=== PATIENT | female | born 1940 | race Caucasian/White ===

== ENCOUNTER 2018-08-15 07:42 | Outpatient (CLI) | payer MEDICARE ==
[~2018-08-15] VITALS: Ht 160 cm; Wt 91.8 kg
--- NOTE | ~2018-08-15 | HEMODYNAMI ---
PATIENT:AMINATA VILLAFANA MEDICAL RECORD: [id number] : 42 LOCATION:[facility] ADMISSION DATE: 08/15/18 Generatedon:08/15/201815:37 Patient name: AMINATA VILLAFANA Patient #: [id number] SSN: : 1940 Date of study: 08/15/2018 Page: Of Hemodynamic Procedure Report Patient Data Patient Demographics Procedure consent was obtained First Name: AMINTAA Gender: Female Last Name: LEDY : 1940 [facility] Initial: Melvina Age: 77 year(s) Patient #: [id number] Race: Unknown Additional ID: [id number] Contact details Address: [address] [place] [address] State: [place] City: [place] Zip code: [address] Admission Admission Data Admission Date: 08/15/2018 Admission Time: 7:42 Weight (lbs.): 202.83 Weight (kg.): 92 Lab Results Lab Result Date: 08/15/2018 Lab Result Time: 0:00 Biochemistry Name Units Result Min Max BUN mg/dl 27 --(----)-* 7 18 Creatinine mg/dl 1.4 --(----)*- 0.6 1.3 CBC Name Units Result Min Max Hemoglobin g/dl 13.5 --(*---)-- 13.5 17.5 Platelets 10^3/l 183 --(*---)-- 130 400 Procedure Procedure Types Cath Procedure Diagnostic Procedure LHC LH w/Coronaries PCI Procedure Coronary Stent Coronary Stent Initial x2 Procedure Description Procedure Date Procedure Date: 08/15/2018 Procedure Start Time: 15:10 Procedure End Time: 15:35 Procedure Staff Name Function Yuval Hanna MD Performing Physician Barbara Dias RT Scrub Xin Llanes RN Nurse Alex Glover RT Monitor Castillo Pedro RN Geothermal Powerplant Mechanic Procedure Data Cath Procedure Fluoroscopy Diagnostic fluoroscopy Total fluoroscopy Time: 7.7 time: 7.7 min min Diagnostic fluoroscopy Total fluoroscopy dose: 443 dose: 443 mGy mGy Contrast Material Contrast Material Type Amount (ml) Isovue 300 102 Entry Location Entry Primary Successful Side Size Upsize Upsize Entry Closure Succes sful Closure Location (Fr) 1 (Fr) 2 (Fr) Remarks Device Remarks Femoral Right 5 Fr 6 Fr Exoseal artery Short Estimated blood loss: 10 ml Diagnostic catheters Device Type Used For End Catheter Placement MULTIPACK Pigtail 5 Fr Procedure catheter MULTIPACK JL 4.0 5Fr Procedure catheter MULTIPACK 3DRC 5Fr Procedure catheter Procedure Complications No complications Procedure Medications Medication Administration Route Dosage 0.9% NaCl I.V. 100 ml/hr Oxygen etCO2 Nasal cannula 2 l/min Lidocaine 2% added to field 20 Heparin Flush Bag added to field 2 bags (1000units/500ml NS) Versed I.V. 2 mg Fentanyl I.V. 50 mcg Heparin Bolus I.V. 4000 units Versed I.V. 2 mg Fentanyl I.V. 50 mcg Versed I.V. 1 mg Hemodynamics Rest HGB: 13.5 (g/dl) Heart Rate: 71 (bpm) Pressure Samples Time Site Value (mmHg) Purpose Heart Use Rate(bpm) 15:20 AO 108/54(76) Snapshot 80 15:27 AO 118/56(82) Snapshot 77 Snapshots Pre Cath Intra NCS Post Cath Vital Signs Time Heart Resp SPO2 etCO2 NIBP (mmHg) Rhythm Pain Sedation Rate (ipm) (%) (mmHg) Status Level (bpm) 15:00:46 69 12 100 25.6 150/74(93) NSR 0 (11) 10(A) , No pain 15:05:27 65 11 100 12.8 148/82(117) NSR 0 (11) 10(A) , No pain 15:09:55 78 18 99 19 124/69(100) NSR 0 (11) 10(A) , No pain 15:14:28 76 15 97 18 111/64(103) NSR 0 (11) 10(A) , No pain 15:18:54 74 18 98 12.8 110/64(83) NSR 0 (11) 9(A) , No pain 15:23:18 80 10 98 18.8 104/68(87) NSR 0 (11) 10(A) , No pain 15:27:42 77 16 97 17.3 117/59(92) NSR 0 (11) 9(A) , No pain 15:32:11 76 15 98 19.6 123/67(105) NSR 0 (11) 10(A) , No pain Medications Time Medication Route Dose Verified Delivered Reason Notes Effectiveness by by 14:59:08 0.9% NaCl I.V. 100 Yuval Xin used for ml/hr Cyndi Llanes dietetic technician registered 14:59:15 Oxygen etCO2 2 Yuval Xin used for Nasal l/min Cyndi Llanes procedure cannula RN 14:59:21 Lidocaine 2% added 20ml Yuval Yuval for local to vial Cyndi Hanna MD anesthetic field 14:59:25 Heparin Flush added 2 Yuval Yuval used for Bag to bags Cyndi Hanna MD procedure (1000units/500ml field NS) 15:07:10 Versed I.V. 2 mg Yuval Xin for sedation Cyndi Llanes RN 15:07:16 Fentanyl I.V. 50 Yuval Xin for sedation mcg Cyndi Llanes RN 15:16:22 Heparin Bolus I.V. 4000 Yuval Xin for verif ied units Cyndi Llanes anticoagulation with Dr. SHANICE Hanna 15:16:44 Versed I.V. 2 mg Yuval Xin for sedation Cyndi Llanes RN 15:16:53 Fentanyl I.V. 50 Yuval Xin for sedation mcg Cyndi Llanes RN 15:26:41 Versed I.V. 1 mg Yuval Xin for sedation Cyndi Llanes RN Procedure Log Time Note 14:30:22 Castillo Pedro RN sent for patient. Start room use. 14:43:23 Time tracking: Regular hours (M-F 7:00 - 5:00) 14:43:27 Plan of Care:Hemodynamics will remain stable., Cardiac rhythm will remain stable., Comfort level will be maintained., Respiratory function will remain adequate., Patient/ family verbilizes understanding of procedure., Procedure tolerated without complication., Recovers from procedure without complications.. 14:45:26 Patient Weight : 202.83 lbs 14:45:48 Lab Result : Hemoglobin 13.5 g/dl 14:45:48 Lab Result : Creatinine 1.4 mg/dl 14:45:48 Lab Result : BUN 27 mg/dl 14:45:48 Lab Result : Platelets 183 10^3/l 14:49:19 Patient received from ED to CCL 3 Alert and oriented. Tansferred to table in Supine position. 14:49:20 Warm blankets applied, and afshin hugger turned on for patient comfort. 14:49:21 Correct patient and procedure confirmed by team. 14:49:22 Signed procedure consent form obtained from patient. 14:49:23 ECG and BP/O2 sat monitors applied to patient. 14:49:24 Full Disclosure recording started 14:58:58 Vital chart was started 14:59:08 0.9% NaCl 100 ml/hr I.V. was administered by Xin Llanes RN; used for procedure; 14:59:15 Oxygen 2 l/min etCO2 Nasal cannula was administered by Xin Llanes RN; used for procedure; 14:59:21 Lidocaine 2% 20ml vial added to field was administered by Yuval Hanna MD; for local anesthetic; 14:59:25 Heparin Flush Bag (1000units/500ml NS) 2 bags added to field was administered by Yuval Hanna MD; used for procedure; 15:04:31 Baseline sample Acquired. 15:04:35 Rhythm: sinus rhythm 15:04:44 H&P Date Dictated: 08/15/2018 Emergent; H&P N/A, Within 30 days and on chart.. 15:04:45 Pre-procedure instructions explained to patient. 15:04:45 Pre-op teaching completed and patient verbalized understanding. 15:04:49 Family in patients room. 15:04:51 Patient NPO since Midnight. 15:05:14 Is the patient allergic to Iodine/contrast media? No. 15:05:22 Is patient on blood thinner?Yes 15:05:24 ACC The patient was administered the following blood thiners within the last 24 hours: ACCPlavix 15:05:26 Patient diabetic? Yes. 15:05:33 If diabetic: On Metformin? No 15:05:35 Previous problem with sedation/anesthesia? No ? 15:05:36 Snore? Yes 15:05:37 Sleep apnea? No 15:05:38 Deviated septum? No 15:05:39 Opens mouth fully? Yes 15:05:40 Sticks out tongue? Yes 15:05:42 Airway obstruction? No ? 15:05:43 Dentures? No ? 15:05:49 Pre procedure: right dorsailis pedis pulse 1+ Palpable, but thready & weak; easily obliterated 15:05:51 Modified Jimmy's test Ulnar < 7 seconds 15:06:04 FAILED ALLENS 15:06:07 Patient pain scale 0/10 ?. 15:06:11 IV patent on arrival in left forearm with 0.9% NaCl at O. 15:06:13 Lab results completed and on chart. 15:06:17 Right groin area was prepped with chlora-prep and draped in sterile fashion 15:06:18 Alarms reviewed by R. N. 15:06:19 Sharps counted by scrub and verified by R.N. 15:06:23 Use device set Femoral Dx 15:06:28 Tegaderm 4 x 4 (1626W) opened to sterile field. 15:06:29 ACIST Manifold (00580) opened to sterile field. 15:06:30 ACIST Hand Control (31558) opened to sterile field. 15:06:31 ACIST Syringe (18229) opened to sterile field. 15:06:31 Bag Decanter (2002S) opened to sterile field. 15:06:31 Medline Cath Pack ([id number]) opened to sterile field. 15:06:32 DIAGNOSTIC WIRE .035 260cm J wire (766267) opened to sterile field. 15:06:33 DIAGNOSTIC Multipack 5Fr catheter set (AO0160) opened to sterile field. 15:06:34 SHEATH 5FR Ava (JQL367) opened to sterile field. 15:06:45 --------ALL STOP TIME OUT------ 15:06:45 Final Timeout: patient, procedure, and site verified with staff and physician. All members of the team are in agreement. 15:06:48 Right groin site verified by team. 15:06:52 Fire Safety Assessment: A--An alcohol-based skin anteseptic being used preoperatively., C--Open oxygen or nitrous oxide is being used., D--An ESU, laser, or fiber-optic light is being used. 15:06:55 Physical assessment completed. ASA score P 2 - A patient with mild systemic disease as per Yuval Hanna MD. 15:06:58 Sedation plan: IV Moderate Sedation Medication:Versed, Fentanyl 15:07:10 Versed 2 mg I.V. was administered by Xin Llanes RN; for sedation; 15:07:16 Fentanyl 50 mcg I.V. was administered by Xin Llanes RN; for sedation; 15:10:25 Procedure started. 15:10:28 Local anesthetic to right femoral artery with Lidocaine 2% by Yuval Hanna MD.INITIAL ACCESS ONLY 15:10:38 Zero performed for pressure channel P1 15:11:39 A 5 Fr sheath was inserted into the Right Femoral artery 15:11:45 A MULTIPACK Pigtail 5 Fr catheter was advanced over the wire and used for Procedure. 15:12:05 LV angiography performed. 15:12:06 LV gram done using BARRIENTOS 15:12:10 EF : 60 % 15:12:17 Injector settings: Ml/sec: 10, Volume: 20, 15:12:29 Catheter removed. 15:12:34 A MULTIPACK JL 4.0 5Fr catheter was advanced over the wire and used for Procedure. 15:13:12 LCA angiography performed. 15:13:15 Catheter removed. 15:13:29 A MULTIPACK 3DRC 5Fr catheter was advanced over the wire and used for Procedure. 15:14:14 RCA angiography performed. 15:14:15 Catheter removed. 15:14:21 Use device set [facility] PCI 15:14:33 SHEATH 6FR Ava (MYC963) opened to sterile field. 15:14:40 INFLATOR Merit BasixCompak (MY6988) opened to sterile field. 15:16:22 Heparin Bolus 4000 units I.V. was administered by Xin Llanes RN; for anticoagulation; verified with Dr. Hanna 15:16:25 CHOICE PT Extra Support J 300cm guide wire ([id number]) opened to sterile field. 15:16:32 GUIDE 6FR XB 4.0 catheter ([id number]) opened to sterile field. 15:16:44 Versed 2 mg I.V. was administered by Xin Llanes RN; for sedation; 15:16:51 Sheath upsized to a 6 Fr Short. 15:16:53 Fentanyl 50 mcg I.V. was administered by Xin Llanes RN; for sedation; 15:16:56 6 Fr XB 4 guide catheter was inserted over the wire 15:17:52 CPTXS wire advanced. 15:17:56 Wire advanced across lesion. 15:19:10 The EMERGE OTW 1.5 x 20 balloon ([id number]) was advanced and then removed because in body, not inflated 15:19:51 Place stent Inflation Number: 1 A PATRICIA RX 3.5 x 12 stent ([id number]) was prepped and advanced across the Prox CX. The stent was deployed at 13 UJHI for 0:10 (min:sec). 15:20:01 Pt preloaded with Plavix at 1143 in ER. No Integrilin needed for intervention per Dr. Hanna 15:21:15 Stent catheter was removed intact over wire. 15:21:38 Emerge Balloon catheter readvanced. 15:22:16 Wire redirected to LAD. 15:23:07 Inflate balloon Inflation number: 1 A EMERGE OTW 1.5 x 20 balloon ([id number]) was prepped and advanced across the Mid LAD, then inflated to 11 JUHI for 0:10 (min:sec). 15:25:01 Balloon removed over the wire. 15:25:40 The PATRICIA OTW 2.5 x 22 stent ([id number]) was advanced then removed because of failure to cross lesion 15:26:40 Inflate balloon Inflation number: 2 A EUPHORA 2.5 x 20 Balloon ([id number]) was prepped and advanced across the Mid LAD, then inflated to 13 JUHI for 0:10 (min:sec). 15:26:41 Versed 1 mg I.V. was administered by Xin Llanes RN; for sedation; 15:28:18 Place stent Inflation Number: 3 A PATRICIA OTW 2.5 x 22 stent ([id number]) was prepped and advanced across the Mid LAD. The stent was deployed at 13 JUHI for 0:10 (min:sec). 15:28:40 Stent catheter was removed intact over wire. 15:30:08 Place stent Inflation Number: 4 A PATRICIA RX 3.0 x 18 stent ([id number]) was prepped and advanced across the Mid LAD. The stent was deployed at 13 JUHI for 0:10 (min:sec). 15:31:01 Stent catheter was removed intact over wire. 15:31:02 Wire removed. 15:31:02 Guide catheter removed. 15:31:05 EXOSEAL 6Fr (EX600) opened to sterile field. 15:31:18 Sheath removed intact; hemostasis achieved with Exoseal to the Right Femoral artery. 15:31:40 Procedure ended.(Physican Out) 15:34:33 Fluoroscopy time 07.70 minutes. 15:34:37 Flurop Dose total: 443 15:34:37 Fluoroscopy dose: 443 mGy 15::40 Contrast amount:Isovue 300 102ml. 15:34:42 Sharps counted by scrub and verified by R.N. 15:34:43 Insertion/operative site no bleeding no hematoma. 15:34:45 Post-op/insertion site Right Femoral artery dressed using a 4 x 4 and Tegaderm. 15:34:46 Post Procedure Pulses reassessed and unchanged 15:34:48 Post-procedure physical assessment completed. ASA score P 2 - A patient with mild systemic disease as per Yuval Hanna MD. 15:34:50 Post procedure rhythm: unchanged. 15:34:52 Estimated blood loss: 10 ml 15:34:55 Post procedure instruction explained to patient.Patient verbalizes understanding. 15:34:55 Patient needs reinforcement of post procedure teaching. 15:35:00 Procedure type changed to Cath procedure, Diagnostic procedure, LHC, LHC w/Coronaries, PCI procedure, Coronary Stent, Coronary Stent Initial x2 15:35:01 Procedure and supply charges have been captured, reviewed, submitted and are correct. 15:35:04 Procedure Complication : No complications 15:35:26 Vital chart was stopped 15:35:26 See physician's report for complete and final results. 15:35:28 Report given to Pre/Post Procedure Room. 15:35:31 Patient transfered to Pre/Post Procedure Room with Stretcher. 15:35:34 Procedure ended. 15:35:34 Full Disclosure recording stopped 15:36:43 End room use (Document Last) Intervention Summary Intervention Notes Time ActionType Lesion and Equipment Used Action# Pressure Duration Attributes 15:19:10 Discard EMERGE OTW 1.5 Balloon x 20 balloon ([id number]) 15:19:51 Place stent Prox CX PATRICIA RX 3.5 x 1 13 00:10 12 stent ([id number]) 15:23:07 Inflate Mid LAD EMERGE OTW 1.5 1 11 00:10 balloon x 20 balloon ([id number]) 15:25:40 Discard PATRICIA OTW 2.5 x Stent 22 stent ([id number]) 15:26:40 Inflate Mid LAD EUPHORA 2.5 x 2 13 00:10 balloon 20 Balloon ([id number]) 15:28:18 Place stent Mid LAD PATRICIA OTW 2.5 x 3 13 00:10 22 stent ([id number]) 15:30:08 Place stent Mid LAD PATRICIA RX 3.0 x 4 13 00:10 18 stent ([id number]) Device Usage Item Name Manufacture Quantity Catalog Number Hospital Part Current Minimal Lot# / Charge Number Stock Stock Serial# Code Tegaderm 4 x 4 3M 1 1626W 191757 892229 386801 5 (1626W) ACIST Manifold Acist 1 90717 649553 496651 327181 5 (03682) Medical Systems Inc ACIST Hand Acist 1 49324 843279 132110 355879 5 Control Medical (58281) Systems Inc ACIST Syringe Acist 1 54158 909065 115711 674751 20 (69649) Medical Systems Inc Bag Decanter Microtek 1 2002S 016001 71397 627769 5 (2001S) Medical Inc. Medline Cath Medline 1 [id number] 371463 16509 193669 5 Pack ([id number]) DIAGNOSTIC St Ferdinand 1 239824 363057 637980 866619 30 WIRE .035 260cm J wire (194986) DIAGNOSTIC Cardinal 1 OV5151 006605 93031 986084 30 Multipack 5Fr Health catheter set (CX5466) SHEATH 5FR Terumo 1 TAH034 824345 563910 471549 5 Ava (BJI152) MULTIPACK Cardinal 1 058746 5 Pigtail 5 Fr Health catheter MULTIPACK JL Cardinal 1 411427 5 4.0 5Fr Health catheter MULTIPACK 3DRC Cardinal 1 236609 5 5Fr catheter Health SHEATH 6FR Terumo 1 JJP207 796543 773266 059269 40 Ava (PUY134) INFLATOR Merit Merit 1 US0992 228994 710332 520260 15 Dresser [employer]ouldings[employer] (YW8185) CHOICE PT [place] 1 [id number] 090571 935963 912457 5 Extra Support Scientific J 300cm guide wire (5038049X5) GUIDE 6FR XB Cardinal 1 29964434 868641 238301 329739 2 4.0 catheter Health (55628034) EMERGE OTW 1.5 [place] 1 [id number] 314807 108304 100597 5 [id number] x 20 balloon Scientific ([id number]) PATRICIA RX 3.5 x Medtronic 1 [id number] 719170 7750530 679826 5 [id number] 12 stent ([id number]) PATRICIA OTW 2.5 x Medtronic 1 [id number] 622663 77850 114285 5 [id number] 22 stent ([id number]) EUPHORA 2.5 x Medtronic 1 [id number] 172240 722074 095984 5 [id number] 20 Balloon ([id number]) PATRICIA RX 3.0 x Medtronic 1 [id number] 287782 6537148 294811 5 [id number] 18 stent ([id number]) EXOSEAL 6Fr Cardinal 1 EX600 278683 618009 038312 10 (EX600) Health Signature Audit [place] Stage Time Signature Unsigned Intra-Procedure 08/15/2018 Alex Glover 3:36:54 PM RT(R) Signatures Monitor : Alex Glover RT Signature : Date : Time : [id number] [place] [address]
--- NOTE | ~2018-08-15 | CN ---
PATIENT NAME:AMINATA AYERS MEDICAL RECORD: [id number] : 42 LOCATION:[facility] ADMIT DATE: ACCOUNT: [id number] CONSULTING PHYSICIAN: SHEEBA ERIC MD REFERRING PHYSICIAN: SHEEBA ERIC MD DATE OF CONSULTATION: 08/15/2018 DIAGNOSES: 1. Unstable angina. 2. Abnormal ECG. 3. Diabetes. 4. Hyperlipidemia. 5. Hypertension. HISTORY OF PRESENT ILLNESS: Mrs. Ayers has multiple risk factors for coronary artery disease. She has not had a history of ischemic heart disease. She, however, presents with chest discomfort that is new. It is radiating to her left shoulder and her arm area that starts in her mid-chest. Her EKG is grossly abnormal with T-wave inversions throughout the anterolateral leads. PHYSICAL EXAMINATION: GENERAL APPEARANCE: Well-nourished, well-developed, appears stated age. Level of distress, comfortable. PSYCHIATRIC: Mental status, alert, normal affect. Orientation, oriented to time, place and person. EYES: Lids and conjunctiva, noninjected. No discharge, no pallor. ENT: Lips, teeth, gums, normal dentition. Oropharynx, no cyanosis, no pallor. NECK: Carotid arteries, bilateral normal upstroke, no bruits, no thrills. JUGULAR VEINS: No jugular venous pressure or distention. CERVICAL LYMPH NODES: Nontender, nonenlarged. THYROID: Not enlarged. Nontender. No nodules. LUNGS: Respiratory effort, unlabored. CHEST: Normal curvature. No thoracic deformity. No chest wall tenderness. Percussion, resonant. Auscultation, clear. No wheezes, no rales, no rhonchi. CARDIOVASCULAR: Precordial exam, nondisplaced. No heaves or pericardial thrills. Rate and rhythm, regular. Heart sounds, normal S1, normal S2. No S3, no gallop, no rub. Systolic murmur, not heard. Diastolic murmur, not heard. EXTREMITIES: No cyanosis, no edema. Peripheral pulses, full and equal in all extremities, except as noted. No bruits appreciated. ABDOMEN: Soft, nondistended. Normal aorta. No bruit. Nontender. No masses. Liver, nontender, no hepatomegaly. Spleen, nontender, no splenomegaly. MUSCULOSKELETAL: No joint tenderness. No joint swelling. No erythema. NEUROLOGICAL: Normal gait, normal strength, normal tone. SKIN: Warm and dry. OVERALL IMPRESSION: Chest pain in an unstable fashion compatible with angina with a grossly abnormal ECG with multiple risk factors. Most likely this is ischemic heart disease. We will proceed with coronary angiography. Further care depends upon findings of the angiography. TRANSINT:[id number] Voice Confirmation ID: [id number] DOCUMENT ID: [id number] CONSULT REPORT [id number] AMINATA AYERS JEFFREY MD CC: [id number] DICTATION DATE: 08/15/18 1046 TANK FARM OPERATOR: 08/15/18 1241 [facility] [address] [id number]
--- NOTE | ~2018-08-15 | OP ---
PATIENT NAME: AMINATA VILLAFANA MEDICAL RECORD: [id number] :42 LOCATION:[facility] ADMISSION DATE: SURGEON: SHEEBA ERIC MD DATE OF OPERATION: 08/15/2018 PROCEDURES: 1. PTCA and stent, LAD. 2. PTCA and stent, left circumflex. 3. Left heart catheterization. 4. Selective coronary angiography. 5. Left ventriculogram. INDICATION: Unstable angina and coronary artery disease. PROCEDURE IN DETAIL: After informed consent was obtained with detailed description of risks and benefits as well as alternative therapies, the patient elected to proceed with angiogram and angioplasty. The right femoral area was prepped and draped in normal sterile fashion. The right femoral artery was cannulated via modified Seldinger technique with placement of 6-Wolof sheath. All catheters were exchanged through this sheath. FINDINGS: Left ventriculogram performed in standard 30-degree BARRIENTOS view reveals preserved cardiac wall motion. Ejection fraction 50%. SELECTIVE CORONARY ANGIOGRAPHY: 1. Left main is with no significant angiographic disease. 2. Left anterior descending has 95% stenosis throughout the mid vessel. 3. Left circumflex has 80% stenosis followed by 100% stenosis of the terminal obtuse marginal. The terminal obtuse marginal fills via lgva-fq-avpi and rpnyr-vq-mgos collaterals. 4. Right coronary has 90% stenosis in the mid vessel. PTCA AND STENT OF THE LEFT CIRCUMFLEX. We could not cross the total occlusion of the distal circumflex. We addressed the 80% stenosis with 3.5 x 12-mm [place]. Result was 0% residual stenosis. PTCA AND STENT OF THE LAD: The stents used were 2.5 x 22 and 3.0 x 18. Result was 0% residual stenosis. OVERALL IMPRESSION: Successful PTCA and stent of the LAD and the circumflex, going from 80% to 95% initial stenosis to 0% residual. PLAN: PTCA and stent of the RCA in the near future. TRANSINT:[id number] Voice Confirmation ID: [id number] DOCUMENT ID: [id number] SHEEBA ERIC MD CC: [id number] DICTATION DATE: 08/15/18 1539 TOOL PLANER SET UP OPERATOR: 08/15/18 192 [facility] [address] [place] [address]
[2018-08-15 07:49] VITALS: Ht 160 cm; Wt 91.8 kg
[2018-08-15] MEDS ORDERED: COREG 3.1253.125 MG PO (08:38)
[2018-08-15] MEDS ORDERED: FISH OIL 1,0001 CA1 PO (08:39)
[2018-08-15] MEDS ORDERED: COLACE100 MG PO (08:39)
[2018-08-15 08:40] LABS: ALBUMIN 3.5 g/dL (3.4-5.0); ALKALINE PHOSPHATASE 56 U/L (46-116); ALT (SGPT) 16 U/L (10-68); BILIRUBIN - TOTAL 0.34 mg/dL (0.2-1.3); CALC OSMOLALITY 281 mosm/kg (275-300); CALCIUM 9.4 mg/dL (8.5-10.1); CARBON DIOXIDE 25.6 mmol/L (21.0-32.0); CHLORIDE - SERUM 99 mmol/L (98-107); CREATININE - SERUM 1.4 mg/dL (0.6-1.3); GLUCOSE 187 mg/dL (74-106); POTASSIUM - SERUM 4.5 mmol/L (3.5-5.1); PROTEIN - SERUM 6.8 g/dL (6.4-8.2); SODIUM 136 mmol/L (136-145); UREA NITROGEN 27 mg/dL (7-18); eGFR NON AFRICAN AMERICAN 39 mL/min (90-120)
[2018-08-15] MEDS ORDERED: BAYER CHEWABLE81 MG PO (08:40)
[2018-08-15] MEDS ORDERED: VITAMIN D2000 UNIT PO (08:40)
[2018-08-15] MEDS ORDERED: SYNTHROID125 MCG PO (08:41)
[2018-08-15] MEDS ORDERED: COZAAR100 MG PO (08:41)
[2018-08-15] MEDS ORDERED: CRANBERRY PO (08:42)
[2018-08-15] MEDS ORDERED: ZANTAC300 MG PO (08:43)
[2018-08-15] MEDS ORDERED: HUMALOG 30100 UNITS/ SC (08:44)
[2018-08-15] MEDS ORDERED: HUMULIN N100 U/ML (08:45)
[2018-08-15 08:50] LABS: CKMB 1.1 U/L (0.0-3.6); CREATINE KINASE 54 UL (21-215); MAGNESIUM - SERUM 1.6 mg/dL (1.8-2.4); TROPONIN-I 0.043 ng/mL (0.000-0.060)
[2018-08-15 08:51] LABS: BASOPHILS 0.6 % (0-2); EOSINOPHILS 1.9 % (0-7); HEMATOCRIT 38.8 % (36.0-48.0); HEMOGLOBIN 13.5 g/dL (12-16); IMMATURE GRANULOCYTES 0.1 % (0-5); LYMPHOCYTES 19.9 % (15-50); MCH 30.3 pg (26.0-34.0); MCHC 34.8 g/dL (31.0-37.0); MCV 87.2 fL (80.0-100.0); MEAN PLATELET VOLUME 10.1 fL (7.4-10.4); MONOCYTES 3.9 % (2-11); NEUTROPHILS 73.6 % (40-80); PLATELET COUNT 183 10x3/uL (130-400); RBC 4.45 10x6/uL (4.00-5.40); WBC 8.2 10x3/uL (4.8-10.8)
[2018-08-15 08:56] LABS: APTT 34.9 SECONDS (22.8-39.4); INR 1.06 (0.85-1.17); PROTIME 13.3 SECONDS (11.6-15.0)
[2018-08-15 14:50] VITALS: BP 177/82
[2018-08-15] MEDS ORDERED: PLAVIX75 MG PO (15:53)
--- NOTE | 2018-08-15 16:05 | NUR ---
PATIENT AWAKE, FAMILY PRESENT AT BEDSIDE. VSS ON 2L NC. RIGHT GROIN DRESSING IS CDI, NO S/S OF BLEEDING OR HEMATOMA. NO C/O PAIN, NUMBNESS, OR TINGLING. TOLERATING PO FLUIDS. NO N/V.
--- NOTE | 2018-08-15 16:35 | NUR ---
PATIENT RESTING, VSS ON 2L NC. RIGHT GROIN DRESSING IS CDI, NO S/S OF BLEEDING OR HEMATOMA. NO C/O PAIN, NUMBNESS, OR TINGLING.
--- NOTE | 2018-08-15 17:05 | NUR ---
PATIENT AWAKE. ASSISTED WITH BEDPAN, VOIDED WITHOUT DIFFICULTY. RIGHT GROIN DRESSING IS CDI, NO S/S OF BLEEDING OR HEMATOMA. NO C/O PAIN, NUMBNESS, OR TINGLING. VSS ON 1L NC. TOLERATING PO FLUIDS, NO N/V.
--- NOTE | 2018-08-15 17:35 | NUR ---
PATIENT RESTING, VSS ON ROOM AIR. RIGHT GROIN DRESSING IS CDI, NO S/S OF BLEEDING OR HEMATOMA. FAMILY PRESENT AT BEDSIDE.
--- NOTE | 2018-08-15 18:05 | NUR ---
PER PATIENT REQUEST, BLOOD GLUCOSE CHECKED, RESULTS 115. PATIENT RESTING, VSS ON ROOM AIR. RIGHT GROIN DRESSING IS CDI, NO S/S OF BLEEDING OR HEMATOMA. NO C/O PAIN, NUMBNESS, OR TINGLING.
--- NOTE | 2018-08-15 18:35 | NUR ---
HEAD OF BED ELEVATED TO 30 DEGREES, RIGHT GROIN DRESSING IS CDI, NO S/S OF BLEEDING OR HEMATOMA. NO C/O PAIN, NUMBNESS, OR TINGLING. VSS ON ROOM AIR. PATIENT EATING TURKEY SANDWICH AND DRINKING WATER, NO N/V.
--- NOTE | 2018-08-15 19:05 | NUR ---
HEAD OF BED ELEVATED TO 90 DEGREES. RIGHT GROIN DRESSING IS CDI, NO S/S OF BLEEDING OR HEMATOMA. NO C/O PAIN, NUMBNESS, OR TINGLING. IV REMOVED. EDUCATION GIVEN TO PATIENT AND FAMILY MEMBERS REGARDING DISCHARGE INSTRUCTIONS AND MEDICATIONS, PATIENT VOICED UNDERSTANDING. VSS ON ROOM AIR.
--- NOTE | 2018-08-15 19:25 | NUR ---
PATIENT TRANSPORTED VIA WHEELCHAIR TO CAR WITH FAMILY DRIVING, ALL BELONINGS SENT WITH PATIENT.
== END 2018-08-15 19:25 ==
LOC: D.CATH 07:42 → D.ER 07:42 → EDSTATUS 11:10 → D.CATH 19:25
PROVIDERS: Emergency Medicine; ATTEND Internal Medicine Interventional Cardiology
DX: I25.110 Atherosclerotic heart disease of native coronary artery with unstable angina pectoris (principal); Z01.812 Encounter for preprocedural laboratory examination
CPT/HCPCS: 93458; C9600 ×2

== ENCOUNTER → 2019-04-18 17:52 | Outpatient (CLI) | payer MEDICARE ==
[2018-08-19 09:28] VITALS: BMI 36.0
[~2019-04-18 17:52] MED LIST: BAYER CHEWABLE81 MG PO; COLACE100 MG PO; COREG 3.1253.125 MG PO; COZAAR100 MG PO; CRANBERRY PO; FISH OIL 1,0001 CA1 PO; HUMALOG 30100 UNITS/ SC; HUMULIN N100 U/ML; PLAVIX75 MG PO; SYNTHROID125 MCG PO; VITAMIN D2000 UNIT PO; ZANTAC300 MG PO
[2019-04-18 18:11] LABS: CHOL - HDL RATIO 3.1 ratio (2.3-4.1); LDL-HDL RATIO 1.6 ratio (1.5-3.5)
== END | disposition home or self-care (01) ==
LOC: D.LABREF 17:52
PROVIDERS: ATTEND Internal Medicine Interventional Cardiology
DX: I25.10 Atherosclerotic heart disease of native coronary artery without angina pectoris (principal)

== ENCOUNTER 2019-07-04 17:47 | Observation (INO) | payer MEDICARE ==
[~2019-07-04] VITALS: Ht 160 cm; Wt 92.7 kg
--- NOTE | ~2019-07-04 | DS ---
PATIENT:AMINATA AYERS :42 MEDICAL RECORD: [id number] DISCHARGE SUMMARY ADMISSION DATE: 07/04/19 DISCHARGE DATE: DATE OF DISCHARGE: 07/05/2019 DIAGNOSES: 1. Unstable angina. 2. Coronary artery disease. 3. Percutaneous transluminal coronary angioplasty stent left anterior descending, right coronary artery, and left circumflex this admission. HOSPITAL COURSE: Mrs. Ayers presents with anginal symptomatology, found to have 3-vessel coronary artery disease, underwent successful PTCA stent of all 3 territories. Discharged home with addition of aspirin and Plavix to her medical regimen. To follow up with [facility] in [facility] month. TRANSINT:[id number] Voice Confirmation ID: [id number] DOCUMENT ID: [id number] SHEEBA ERIC MD CC: [id number] DICTATION DATE: 07/05/1944 MAINTENANCE MILLWRIGHT: 07/05/19 0857 ADM IN [facility] [address] [place] [address]
--- NOTE | ~2019-07-04 | HEMODYNAMI ---
PATIENT:AMINATA VILLAFANA MEDICAL RECORD: [id number] : 42 LOCATION:[facility] [address] [facility] [id number] ADMISSION DATE: 07/04/19 Generatedon:07/05/20198:50 Patient name: AMINATA VILLAFANA Patient #: [id number] SSN: [id number] : 1940 Date of study: 07/05/2019 Page: Of Hemodynamic Procedure Report Patient Data Patient Demographics Procedure consent was obtained First Name: AMINATA Gender: Female Last Name: LEDY : 1940 [facility] Initial: Melvina Age: 78 year(s) Patient #: [id number] Race: SSN: [id number] Additional ID: [id number] Contact details [address]: [address] [place] [address] State: [place] City: [place] Zip code: [address] Admission Admission Data Admission Date: 07/04/2019 Admission Time: 19:10 Arrival Date: 07/05/2019 Arrival Time: 0:00 Admit Source: Other Insurance Payor: Medicare Room #: D.2117 [facility] #: [id number] Height (in.): 62.99 BSA: 1.95 (m2) Height (cm.): 160 BMI: 35.94 (kg/m2) Weight (lbs.): 202.83 Weight (kg.): 92 Lab Results Lab Result Date: 07/05/2019 Lab Result Time: 0:00 Biochemistry Name Units Result Min Max BUN mg/dl 22 --(----)-* 7 18 Creatinine mg/dl 1.4 --(----)*- 0.6 1.3 CBC Name Units Result Min Max Hemoglobin g/dl 13.7 --(*---)-- 13.5 17.5 Procedure Procedure Types Cath Procedure Diagnostic Procedure [facility] w/Coronaries FFR/IVUS FFR Initial FFR Additional Sedation Charges Moderate Sedation up to 15 minutes PCI Procedure Coronary Stent Coronary Stent Initial x2 Hemochron ACT Test Procedure Description Procedure Date Procedure Date: 07/05/2019 Procedure Start Time: 8:19 Procedure End Time: 8:40 Procedure Staff Name Function Yuval Hanna MD Performing Physician Xin Llanes RN Nurse Julieta Sung RT Scrub Ashu Jackman RT Monitor Indication Chest pain Procedure Data Cath Procedure Fluoroscopy Diagnostic fluoroscopy Total fluoroscopy Time: 5.6 time: 5.6 min min Diagnostic fluoroscopy Total fluoroscopy dose: dose: 1089 mGy 1089 mGy Contrast Material Contrast Material Type Amount (ml) Isovue 370 118 Entry Location Entry Primary Successful Side Size Upsize Upsize Entry Closure Succes sful Closure Location (Fr) 1 (Fr) 2 (Fr) Remarks Device Remarks Femoral Right 5 Fr 6 Fr Exoseal artery Short Diagnostic catheters Device Type Used For End Catheter Placement MULTIPACK Pigtail 5 Fr LV Angiography catheter MULTIPACK JL 4.0 5Fr Left Coronary catheter Angiography MULTIPACK 3DRC 5Fr Right Coronary catheter Angiography Procedure Complications No complications Procedure Medications Medication Administration Route Dosage 0.9% NaCl I.V. 100 ml/hr Oxygen etCO2 Nasal cannula 2 l/min Lidocaine 2% added to field 20 Heparin Flush Bag added to field 2 bags (1000units/500ml NS) Versed I.V. 2 mg Fentanyl I.V. 50 mcg Heparin Bolus I.V. 4000 units Fentanyl I.V. 50 mcg Hemodynamics Rest BSA: 1.95 (m2) HGB: 13.7 (g/dl) O2 Consumption: Estimated: 176.97 (ml/min) O2 Co nsumption indexed: Estimated:90.75 (ml/min/m) Heart Rate: 71 (bpm) Snapshots Pre Cath Intra NCS Post Cath Vital Signs Time Heart Resp SPO2 etCO2 NIBP (mmHg) Rhythm Pain Sedation Rate (ipm) (%) (mmHg) Status Level (bpm) 8:06:28 68 12 100 18.1 Measuring NSR 0 (11) 10(A) , No pain 8:07:23 70 16 100 34 213/104(168) NSR 0 (11) 10(A) , No pain 8:12:12 69 14 99 35.5 212/84(163) NSR 0 (11) 10(A) , No pain 8:16:55 68 10 99 25.7 203/86(155) NSR 0 (11) 10(A) , No pain 8:21:33 63 14 98 37.1 166/83(134) NSR 0 (11) 10(A) , No pain 8:26:32 67 16 100 37.8 Measuring NSR 0 (11) 9(A) , No pain 8:26:53 70 15 100 42.4 161/86(135) NSR 0 (11) 9(A) , No pain 8:31:23 67 12 100 39.3 168/79(122) NSR 0 (11) 9(A) , No pain 8:35:49 68 11 100 36.3 173/94(148) NSR 0 (11) 10(A) , No pain 8:41:38 60 17 100 34.7 206/89(156) NSR 0 (11) 10(A) , No pain Medications Time Medication Route Dose Verified Delivered Reason Notes Effectiveness by by 8:04:46 0.9% NaCl I.V. 100 Yuval Xin used for ml/hr Cyndi Llanes paper feeder 8:04:52 Oxygen etCO2 2 Yuval Xin used for Nasal l/min Cyndi Llanes procedure cannula RN 8:04:57 Lidocaine 2% added 20ml Yuval Yuval for local to vial Cyndi Hanna MD anesthetic field 8:05:02 Heparin Flush added 2 Yuval Yuval used for Bag to bags Cyndi Hanna MD procedure (1000units/500ml field NS) 8:16:12 Versed I.V. 2 mg Yuval Xin for sedation Cyndi Llanes RN 8:16:17 Fentanyl I.V. 50 Yuval Xin for sedation mcg Cyndi Llanes RN 8:22:20 Fentanyl I.V. 50 Yuval Xin for sedation mcg Cyndi Llanes RN 8:22:49 Heparin Bolus I.V. 4000 Yuval Xin for verifi ed units Cyndi Llanes anticoagulation with Dr. SHANICE Hanna Procedure Log Time Note 7:43:09 Arrival Date: 07/05/2019 12:00:00 AM 7:43:29 Admit Source: Other 7:43:57 Insurance Payor : Medicare 7:44:09 Patient Height : 62.99 inches 7:44:13 Patient Weight : 202.83 lbs 7:44:47 Lab Result : Hemoglobin 13.7 g/dl 7:44:47 Lab Result : Creatinine 1.4 mg/dl 7:44:47 Lab Result : BUN 22 mg/dl 7:45:04 Diagnostic Cath Status : Elective 7:45:26 Indication : Chest pain 7:45:39 Procedure Status Urgent Heart Cath (IP). 7:45:41 Julieta Sung RT(R) sent for patient. Start room use. 7:45:43 Time tracking: Regular hours (M-F 7:00 - 5:00) 7:45:47 Plan of Care:Hemodynamics will remain stable., Cardiac rhythm will remain stable., Comfort level will be maintained., Respiratory function will remain adequate., Patient/ family verbilizes understanding of procedure., Procedure tolerated without complication., Recovers from procedure without complications.. 7:45:57 Use device set Femoral Dx 8:04:39 Vital chart was started 8:04:46 0.9% NaCl 100 ml/hr I.V. was administered by Xin Llanes RN; used for procedure; Verbal order read back and verified. 8:04:52 Oxygen 2 l/min etCO2 Nasal cannula was administered by Xin Llanes RN; used for procedure; Verbal order read back and verified. 8:04:57 Lidocaine 2% 20ml vial added to field was administered by Yuval Hanna MD; for local anesthetic; Verbal order read back and verified. 8:05:02 Heparin Flush Bag (1000units/500ml NS) 2 bags added to field was administered by Yuval Hanna MD; used for procedure; Verbal order read back and verified. 8:09:36 Patient received from PCU to [facility] 2 Alert and oriented. Tansferred to table in Supine position. 8:09:38 Signed procedure consent form obtained from patient. 8:09:38 Warm blankets applied, and afshin hugger turned on for patient comfort. 8:09:39 Correct patient and procedure confirmed by team. 8:09:40 Baseline sample Acquired. 8:09:40 ECG and BP/O2 sat monitors applied to patient. 8:09:45 Rhythm: sinus rhythm 8:09:46 Full Disclosure recording started 8:10:05 H&P Date Dictated: 07/05/2019 Within 30 days and on chart.. 8:10:07 Pre-procedure instructions explained to patient. 8:10:07 Pre-op teaching completed and patient verbalized understanding. 8:10:11 Family in waiting room. 8:10:13 Patient NPO since Midnight. 8:10:39 Is the patient allergic to Iodine/contrast media? No. 8:10:42 Is patient on blood thinner?Yes 8:10:44 ACC The patient was administered the following blood thiners within the last 24 hours: ACCPlavix 8:10:47 Patient diabetic? Yes. 8:10:48 If diabetic: On Metformin? No 8:10:53 ----Pre-sedation anethsthesia assessment.---- 8:10:56 Previous problem with sedation/anesthesia? No ? 8:11:04 Snore? No 8:11:06 Sleep apnea? No 8:11:08 Deviated septum? No 8:11:09 Opens mouth fully? Yes 8:11:11 Sticks out tongue? Yes 8:11:14 Airway obstruction? No ? 8:11:17 Dentures? No ? 8:11:20 Pre procedure: right dorsailis pedis pulse 1+ Palpable, but thready & weak; easily obliterated 8:11:23 Patient pain scale 0/10 ?. 8:11:34 IV patent on arrival in right forearm with 0.9% NaCl at [facility]. 8:11:38 Lab results completed and on chart. 8:14:16 Risk of MIRIAM: 2.6 8:14:20 Right groin area was prepped with chlora-prep and draped in sterile fashion 8:14:21 Alarms reviewed by R. N. 8:14:22 Sharps counted by scrub and verified by R.N. 8:14:25 Physician arrived 8:14:25 --------ALL STOP TIME OUT------ 8:14:26 Final Timeout: patient, procedure, and site verified with staff and physician. All members of the team are in agreement. 8:14:28 Right groin site verified by team. 8:14:31 Fire Safety Assessment: A--An alcohol-based skin anteseptic being used preoperatively., C--Open oxygen or nitrous oxide is being used., D--An ESU, laser, or fiber-optic light is being used. 8:14:36 Physical assessment completed. ASA score P 2 - A patient with mild systemic disease as per Yuval Hanna MD. 8:14:48 3b) 30-44 Moderately reduced kidney function. 8:15:09 Maximum allowable contrast dose (3.7 X eGFR X 0.75)116.55 ml. 8:15:13 Sedation plan: IV Moderate Sedation Medication:Versed, Fentanyl 8:16:12 Versed 2 mg I.V. was administered by Xin Llanes RN; for sedation; Verbal order read back and verified. 8:16:17 Fentanyl 50 mcg I.V. was administered by Xin Llanes RN; for sedation; Verbal order read back and verified. 8:18:16 Procedure started. 8:19:22 Local anesthetic to right femoral artery with Lidocaine 2% by Yuval Hanna MD.INITIAL ACCESS ONLY 8:19:30 A 5 Fr sheath was inserted into the Right Femoral artery 8:19:39 A MULTIPACK Pigtail 5 Fr catheter was advanced over the wire and used for LV Angiography. 8:19:43 LV angiography performed. 8:19:45 LV gram done using BARRIENTOS 8:19:50 EF : 55 % 8:19:52 Catheter removed. 8:19:58 A MULTIPACK JL 4.0 5Fr catheter was advanced over the wire and used for Left Coronary Angiography. 8:20:03 LCA angiography performed. 8:21:02 Catheter removed. 8:21:11 A MULTIPACK 3DRC 5Fr catheter was advanced over the wire and used for Right Coronary Angiography. 8:21:14 RCA angiography performed. 8:21:17 Catheter removed. 8:22:20 Fentanyl 50 mcg I.V. was administered by Xin Llanes RN; for sedation; Verbal order read back and verified. 8:22:49 Heparin Bolus 4000 units I.V. was administered by Xin Llanes RN; for anticoagulation; verified with Dr. Hanna Verbal order read back and verified. 8:23:16 ACIST Syringe (98663) opened to sterile field. 8:23:17 Bag Decanter () opened to sterile field. 8:23:18 Medline Cath Pack ([id number]) opened to sterile field. 8:23:19 ACIST Hand Control (55239) opened to sterile field. 8:23:20 ACIST Manifold (22648) opened to sterile field. 8:23:20 DIAGNOSTIC Multipack 5Fr catheter set ([id number]) opened to sterile field. 8:23:23 SHEATH 5FR Foster (YCN163) opened to sterile field. 8:23:25 EMERALD Guide Wire (502-132) opened to sterile field. 8:23:25 INFLATOR Merit BasixCompak (TK2997) opened to sterile field. 8:23:26 SHEATH 6FR Foster (JXP449) opened to sterile field. 8:23:27 CHOICE PT Extra Support 182cm wire ([id number]) opened to sterile field. 8:23:27 GUIDE 6FR XBLAD 3.5 catheter ([id number]) opened to sterile field. 8:23:28 [place] Verrata Plus pressure wire (86953G) opened to sterile field. 8:23:43 Sheath upsized to a 6 Fr Short. 8:23:47 ACC Pre-intervention ARTEMIO Flow is 3. 8:23:57 Pre PCI Site: [place] mLAD has 75% stenosis. 8:24:08 6 Fr XBLAD 3.5 guide catheter was inserted over the wire 8:24:13 FFR/IVUS 8:24:14 FFR/IFR wire advanced. 8:24:15 Wire advanced across lesion. 8:24:17 Baseline FFR 100. 8:24:50 Procedure type changed to Cath procedure, Diagnostic procedure, LHC, [facility] w/Coronaries, FFR/IVUS, FFR Initial, FFR Additional, Sedation Charges, Moderate Sedation up to 15 minutes, PCI procedure, Coronary Stent, Coronary Stent Initial x2, Hemochron ACT Test 8:25:57 mLAD lesion measured at 0.86 with IFR 8:26:05 Wire redirected to CX. 8:26:38 FFR/IFR wire advanced. 8:26:39 Wire advanced across lesion. 8:26:46 mCirc lesion measured at 0.85 with IFR 8:27:05 Pre PCI Site: [place] mCirc has 75% stenosis. 8:28:22 Place stent Inflation Number: 1 A PATRICIA RX 3.5 x 12 stent ([id number]) was prepped and advanced across the Mid CX 75. The stent was deployed at 15 JUHI for 0:10 (min:sec) . 8:28:37 Stent catheter was removed intact over wire. 8:28:42 Wire redirected to LAD. 8:29:50 Place stent Inflation Number: 1 A PATRICIA RX 3.0 x 15 stent ([id number]) was prepped and advanced across the Mid LAD 75. The stent was deployed at 17 JUHI for 0:16 (min:sec) . 8:30:08 Stent catheter was removed intact over wire. 8:30:11 Wire removed. 8:30:12 Guide catheter removed. 8:30:29 GUIDE 6FR HS I SH catheter (LE1HGNFC) opened to sterile field. 8:30:49 6 Fr HS 1 SH guide catheter was inserted over the wire 8:31:49 Pre PCI Site: [place] mRCA has 80% stenosis. 8:31:55 CPTES wire advanced. 8:33:43 Place stent Inflation Number: 1 A PATRICIA RX 2.0 x 22 stent ([id number]) was prepped and advanced across the Undefined2 80. The stent was deployed at 15 JUHI for 0:13 (min:sec) . 8:35:00 EXOSEAL 6Fr (EX600) opened to sterile field. 8:35:18 Stent catheter was removed intact over wire. 8:35:18 Wire removed. 8:35:19 Guide catheter removed. 8:35:31 Sheath removed intact; hemostasis achieved with Exoseal to the Right Femoral artery. 8:35:33 Procedure ended.(Physican Out) 8:35:45 Fluoroscopy time 05.60 minutes. 8:36:03 Fluoroscopy dose: 1089 mGy 8:36:03 Flurop Dose total: 1089 8:36:10 ACT drawn and resulted at 287 seconds. (normal therapeutic range 180-240 seconds). 8:36:10 Dose Area Product 71057 mGy/cm. 8:36:14 Contrast amount:Isovue 370 118ml. 8:36:17 Maximum allowable dose exceeded? No. 8:36:32 Insertion/operative site no bleeding no hematoma. 8:36:36 Post-op/insertion site Right Femoral artery dressed using a 4 x 4 and Tegaderm. 8:36:39 Post right femoral artery:stable 8:36:40 Post Procedure Pulses reassessed and unchanged 8:36:43 Post procedure: right dorsailis pedis pulse 2+ Normal; easily identifiable; not easily obliterated. 8:36:48 Post-procedure physical assessment completed. ASA score P 2 - A patient with mild systemic disease as per Yuval Hanna MD. 8:36:52 Post procedure rhythm: unchanged. 8:36:53 Post procedure instruction explained to patient.Patient verbalizes understanding. 8:37:21 Procedure and supply charges have been captured, reviewed, submitted and are correct. 8:40:32 Procedure Complication : No complications 8:40:34 Vital chart was stopped 8:40:37 [facility] Findings: MVD- PCI performed (see procedure note) 8:40:40 Operative report dictated upon procedure completion. 8:40:42 See physician's report for complete and final results. 8:40:44 Report given to PCU. 8:40:48 Patient transfered to PCU with Bed. 8:40:50 Procedure ended. 8:40:50 Full Disclosure recording stopped 8:41:00 ACC-PCI Only Patient was given prescriptions, or instructed by Yuval Hanna MD to start/continue the following medications upon discharge: Plavix 8:41:01 End room use (Document Last) Intervention Summary Intervention Notes Time ActionType Lesion and Equipment Used Action# Pressure Duration Attributes 8:28:22 Place stent Mid CX PATRICIA RX 3.5 x 1 15 00:10 12 stent ([id number]) 8:29:50 Place stent Mid LAD PATRICIA RX 3.0 x 1 17 00:17 15 stent ([id number]) 8:33:43 Place stent Undefined2 PATRICIA RX 2.0 x 1 15 00:13 22 stent ([id number]) Device Usage Item Name Manufacture Quantity Catalog Number Hospital Part Current Minimal Lot# / Charge Number Stock Stock Serial# Code MULTIPACK Cardinal 1 [id number] 5 Pigtail 5 Fr Health catheter MULTIPACK JL Cardinal 1 368255 5 4.0 5Fr Health catheter MULTIPACK 3DRC Cardinal 1 [id number] 5 5Fr catheter Health ACIST Syringe Acist 1 06509 284466 947988 514801 20 (55817) Medical Systems Inc Bag Decanter Microtek 1 332840 61181 545731 5 () Medical Inc. Medline Cath Medline 1 [id number] 826955 64287 949781 5 Pack ([id number]) ACIST Hand Acist 1 34721 734815 606412 366789 5 Control Medical (59189) Systems Inc ACIST Manifold Acist 1 66495 661449 733002 590258 5 (40850) Medical Systems Inc DIAGNOSTIC Cardinal 1 QJ9675 971175 81318 651036 30 Multipack 5Fr Health catheter set (JN4725) SHEATH 5FR Terumo 1 UGJ265 487122 675472 269294 5 Foster (KOZ242) EMERALD Guide Cardinal 1 502-455 103288 921115 701676 5 Wire (502-455) Health INFLATOR Merit Merit 1 XZ6706 397941 765879 057521 15 Vyopta Medical (TG0265) SHEATH 6FR Terumo 1 EYN297 124622 901279 155607 40 Foster (OLN624) CHOICE PT [place] 1 [id number] 562573 929222 694872 5 Extra Support Scientific 182cm wire ([id number]) GUIDE 6FR Cardinal 1 92633695 578246 893527 197928 10 XBLAD 3.5 Health catheter ([id number]) [place] 1 49584N 115857 140623023 581694 5 Verrata Plus pressure wire (03273R) PATRICIA RX 3.5 x Medtronic 1 [id number] 011319 5839839 316444 5 [id number] 12 stent ([id number]) PATRICIA RX 3.0 x Medtronic 1 [id number] 049051 9144243 967501 5 [id number] 15 stent ([id number]) GUIDE 6FR HS I Medtronic 1 [id number] 207769 73467 977350 1 SH catheter ([id number]) PATRICIA RX 2.0 x Medtronic 1 [id number] 069346 0255741 470329 5 [id number] 22 stent ([id number]) EXOSEAL 6Fr Cardinal 1 EX600 325686 761837 588077 10 (EX600) Health Signature Audit [place] Stage Time Signature Unsigned Intra-Procedure 07/05/2019 Xin Llanes 8:48:34 AM RN Intra-Procedure 07/05/2019 Ashu Jackman RT(R) 8:49:38 AM Intra-Procedure 07/05/2019 Yuval Hanna 8:50:05 AM MD Signatures Performing Physician : Signature : Yuval Hanna MD Date : Time : Nurse : Xin Llanes RN Signature : Date : Time : Monitor : Ashu Jackman RT Signature : Date : Time : [facility] [address] [place] [address]
--- NOTE | ~2019-07-04 | OP ---
PATIENT NAME: AMINATA VILLAFANA MEDICAL RECORD: [id number] :42 LOCATION:D.M2 D.2117 ADMISSION DATE:07/04/19 SURGEON: SHEEBA ERIC MD DATE OF OPERATION: 07/05/2019 PROCEDURES: 1. PTCA stent RCA. 2. PTCA stent left circumflex. 3. PTCA stent LAD. 4. IFR left circumflex. 5. IFR LAD. 6. Left heart catheterization. 7. Selective coronary angiography. 8. Left ventriculogram. INDICATION: Unstable angina and coronary artery disease. PROCEDURE IN DETAIL: After informed consent was obtained and after detailed explanation of risks, benefits as well as alternative therapies, the patient elected to proceed with angiogram and angioplasty. The right femoral area was prepped and draped in normal sterile fashion. Right femoral artery was cannulated via modified Seldinger technique with placement of 6-Nepali sheath. All catheters exchanged through this sheath. FINDINGS: Left ventriculogram was performed in normal standard 30-degree BARRIENTOS view reveals good cardiac wall motion, ejection fraction estimated 60%. SELECTIVE CORONARY ANGIOGRAPHY: 1. Left main is with no significant angiographic disease. 2. Left anterior descending has 75% stenosis proximally. After this, there is a previously placed stent that is widely patent. IFR is abnormal. 3. Left circumflex has a previously placed stent. After the previously placed stent, there is a 70% to 75% stenosis. IFR was abnormal. 4. The right coronary artery has 90% to 95% stenosis in the midvessel. PTCA STENT OF THE RCA: The stent used was a 2.0 x 22 mm [place]. Result was 0% residual stenosis. PTCA STENT OF THE LEFT CIRCUMFLEX: The stent used was a 3.5 x 12 mm [place]. Result was 0% residual stenosis. PTCA STENT OF THE LAD: The stent used was a 3.0 x 15 mm [place]. Result was 0% residual stenosis. OVERALL IMPRESSION: Successful percutaneous transluminal coronary angioplasty stent of the left circumflex, LAD, and RCA all going from 70% to 90% initial stenosis to 0% residual. TRANSINT:[id number] Voice Confirmation ID: [id number] DOCUMENT ID: [id number] OPERATIVE REPORT [id number] ENOCROXANNAnilaSHEEBA GREWAL MD CC: [id number] DICTATION DATE: 07/05/1943 HUMAN RESOURCES PROFESSIONAL: 07/05[birth year]05 ADM IN [facility] [address] [facility] [place] [address]
[2019-07-04] MEDS ORDERED: PEPCID40 MG PO (18:11)
[2019-07-04] MEDS ORDERED: TOPROL XL25 MG PO (18:14)
[2019-07-04] MEDS ORDERED: PRALUENT P75 MG/1 ML SC (18:14)
[2019-07-04 18:15] LABS: BASOPHILS 0.5 % (0-2); HEMATOCRIT 39.8 % (36.0-48.0); HEMOGLOBIN 13.7 g/dL (12-16); IMMATURE GRANULOCYTES 0.2 % (0-5); LYMPHOCYTES 23.9 % (15-50); MCH 30.6 pg (26.0-34.0); MCHC 34.4 g/dL (31.0-37.0); MEAN PLATELET VOLUME 9.4 fL (7.4-10.4); MONOCYTES 7.2 % (2-11); NEUTROPHILS 66.2 % (40-80); RBC 4.47 10x6/uL (4.00-5.40); WBC 8.2 10x3/uL (4.8-10.8)
[2019-07-04 18:18] VITALS: BP 162/57
[2019-07-04 18:32] LABS: PROTIME 13.1 SECONDS (11.6-15.0)
[2019-07-04 18:33] LABS: APTT 33.7 SECONDS (22.8-39.4)
[2019-07-04 18:34] LABS: D-DIMER-QUANTITATIVE < 0.27 ug/mLFEU (0.20-0.54)
[2019-07-04 18:37] LABS: CALC OSMOLALITY 269 mosm/kg (275-300); CALCIUM 9.6 mg/dL (8.5-10.1); CARBON DIOXIDE 30.2 mmol/L (21.0-32.0); CHLORIDE - SERUM 97 mmol/L (98-107); CREATININE - SERUM 1.4 mg/dL (0.6-1.3); POTASSIUM - SERUM 4.2 mmol/L (3.5-5.1); SODIUM 134 mmol/L (136-145); UREA NITROGEN 22 mg/dL (7-18); eGFR NON AFRICAN AMERICAN 39 mL/min (90-120)
[2019-07-04 18:38] LABS: PLATELET COUNT 211 10x3/uL (130-400)
[2019-07-04 18:42] LABS: GLUCOSE 80 mg/dL (74-106)
--- NOTE | 2019-07-04 18:57 | NUR ---
BS REPORT TO SHANICE GRIFFIN
[2019-07-04 19:00] LABS: ALBUMIN 3.7 g/dL (3.4-5.0); ALKALINE PHOSPHATASE 62 U/L (46-116); ALT (SGPT) 20 U/L (10-68); BILIRUBIN - TOTAL 0.34 mg/dL (0.2-1.3); CREATINE KINASE 78 UL (21-215); MAGNESIUM - SERUM 1.6 mg/dL (1.8-2.4); PROTEIN - SERUM 7.2 g/dL (6.4-8.2); TROPONIN-I < 0.017 ng/mL (0.000-0.060)
[2019-07-04 20:00] VITALS: BP 173/68
[2019-07-04] MEDS ORDERED: MAG-OX 400 MG400 MG PO (21:20)
--- NOTE | 2019-07-04 22:19 | NUR ---
PATIENT ARRIVED FROM THE ER. PATIENT IS ALERT AND ORIENTED. RESTING COMFORTABLY IN BED. RESPIRATIONS ARE EVEN AND UNLABORED. NO S/S OF DISTRESS. NO C/O PAIN. FSBS 109. NO INSULIN GIVEN. PATIENT CONCERNED THAT SHE WAS NOT GIVEN IV FLUIDS IN THE ER. PATIENT AFRAID THAT SHE IS GOING TO GET DEHYDRATION. PATIENT GIVEN A LARGE GLASS OF WATER. PATIENT WAS ORDERED MG WHILE IN THE ER. PATIENT REFUSED MG STATING THAT SHE WILL GET DIARRHEA. CALL LIGHT WITHIN REACH. WILL CPOC.
[2019-07-05] VITALS: BP 161/64
[2019-07-05 00:58] VITALS: BP 173/68; BMI 36.2
--- NOTE | 2019-07-05 01:30 | NUR ---
PATIENT RESTING COMFORTABLY IN BED. RESPIRATIONS ARE EVEN AND UNLABORED. NO S/S OF DISTRESS. NO C/O PAIN. CALL LIGHT WITHIN REACH. WILL CPOC.
[2019-07-05 04:00] VITALS: BP 130/64
--- NOTE | 2019-07-05 04:14 | NUR ---
PATIENT RESTING COMFORTABLY IN BED. RESPIRATIONS ARE EVEN AND UNLABORED. NO S/S OF DISTRESS. NO C/OPAIN. CALL LIGHT WITHIN REACH. WILL CPOC.
[2019-07-05 05:43] LABS: BASOPHILS 0.6 % (0-2); EOSINOPHILS 2.6 % (0-7); HEMATOCRIT 37.2 % (36.0-48.0); HEMOGLOBIN 12.9 g/dL (12-16); IMMATURE GRANULOCYTES 0.3 % (0-5); LYMPHOCYTES 28.9 % (15-50); MCH 30.6 pg (26.0-34.0); MCHC 34.7 g/dL (31.0-37.0); MCV 88.4 fL (80.0-100.0); MEAN PLATELET VOLUME 9.9 fL (7.4-10.4); MONOCYTES 8.1 % (2-11); NEUTROPHILS 59.5 % (40-80); PLATELET COUNT 177 10x3/uL (130-400); RBC 4.21 10x6/uL (4.00-5.40); WBC 6.6 10x3/uL (4.8-10.8)
[2019-07-05 06:10] LABS: ALBUMIN 3.1 g/dL (3.4-5.0); ALKALINE PHOSPHATASE 46 U/L (46-116); ALT (SGPT) 16 U/L (10-68); BILIRUBIN - TOTAL 0.57 mg/dL (0.2-1.3); CALC OSMOLALITY 267 mosm/kg (275-300); CALCIUM 8.8 mg/dL (8.5-10.1); CARBON DIOXIDE 26.8 mmol/L (21.0-32.0); CHLORIDE - SERUM 98 mmol/L (98-107); CKMB 0.8 U/L (0.0-3.6); CREATINE KINASE 57 UL (21-215); CREATININE - SERUM 1.3 mg/dL (0.6-1.3); GLUCOSE 102 mg/dL (74-106); POTASSIUM - SERUM 3.7 mmol/L (3.5-5.1); PROTEIN - SERUM 6.1 g/dL (6.4-8.2); SODIUM 133 mmol/L (136-145); UREA NITROGEN 19 mg/dL (7-18); eGFR NON AFRICAN AMERICAN 42 mL/min (90-120)
[2019-07-05 06:11] LABS: TROPONIN-I < 0.017 ng/mL (0.000-0.060)
[2019-07-05 07:01] VITALS: Ht 160 cm; Wt 92.7 kg
--- NOTE | 2019-07-05 07:56 | NUR ---
PT TO FIBER GLASS WORKER
--- NOTE | 2019-07-05 08:41 | HP ---
PATIENT: AMINATA AYERS MEDICAL RECORD: [id number] ACCOUNT: [id number] LOCATION:[address] : 42 ADMISSION DATE: 07/04/19 PCP: CLOTILDE TORRES MD HISTORY AND PHYSICAL EXAMINATION DATE OF SERVICE: 07/04/2019. ADMITTING DIAGNOSES: 1. Unstable angina. 2. Coronary artery disease. 3. Previous multivessel percutaneous transluminal coronary angioplasty stent. 4. Hypertension. 5. Hyperlipidemia. 6. Insulin-dependent diabetes. HISTORY OF PRESENT ILLNESS: Mrs. Ayers presents to our office last week with increasing anginal symptomatology. She was set for nuclear stress test. Her angina is just like that prior to needing stents in the past, the last being in August of last year. It has progressed. She was having class IV rest pain. She presents to the Emergency Room. She continues to have the episodes of chest discomfort overnight. She is on maximal medical therapy with heart rates in the 50s and systolic blood pressures in the 120 range. She continues to have progression of disease. PHYSICAL EXAMINATION: CONSTITUTIONAL/GENERAL APPEARANCE: Well nourished, well developed, appears stated age. EYES: Lids and conjunctivae noninjected. No discharge. No pallor. ENT: Lips within normal limit. No cyanosis. No pallor. NECK: Carotid arteries, bilateral normal upstroke. No bruits. No thrills. No jugular venous pressure or distention. CERVICAL LYMPH NODES: Nontender. Nonenlarged. THYROID: Not enlarged. No nodules. CARDIOVASCULAR: Precordial exam, nondisplaced. No heaves or pericardial thrills. Rate and rhythm, regular. Heart sounds, normal S1, normal S2. No S3, no gallop, no rub. Systolic murmur, not heard. Diastolic murmur, not heard. RESPIRATORY: Respiratory effort, unlabored. Normal curvature. No thoracic deformity. No chest wall tenderness. Percussion, resonant. Auscultation, clear. No wheezes, no rales, no rhonchi. ABDOMEN: Soft, nondistended, nontender. No abdominal pain, no vomiting and normal appetite. MUSCULOSKELETAL: No joint tenderness, normal gait, normal tone. SKIN: Warm and dry. OVERALL IMPRESSION: Unstable angina despite maximal medical therapy. We will proceed with coronary angiography. Further care depends upon the findings of the angiography. TRANSINT:[id number] Voice Confirmation ID: [id number] DOCUMENT ID: [id number] HISTORY AND PHYSICAL [id number] AMINATA AYERS JEFFREY MD at 0841 CC: [id number] DICTATION DATE: 07/05/19701 RETAIL DIRECTOR: 07/05/19 0714 ADM IN [place] [id number] [place] [address]
--- NOTE | 2019-07-05 09:00 | NUR ---
RECEIVED PT BACK TO ROOM 2116. PT DROWSY BUT EASILY AROUSES TO VOICE. VITAL SIGNS STABLE, DRESSING TO RT GROIN CDI, NO SIGNS OF BLEEDING OR HEMATOMA NOTED. AM MEDS GIVEN AT THIS TIME. INSTRUCTED PT TO LAY FLAT FOR THE NEXT 4HRS. PT VERBALIZED UNDERSTANDING. DENIES ANY NEEDS AT THIS TIME. CALL LIGHT IN REACH, NAD NOTED,W ILL CONTINUE TO MONITOR.
[2019-07-05] MEDS ORDERED: PLAVIX75 MG PO (09:41)
[2019-07-05 10:22] VITALS: BP 178/72
--- NOTE | 2019-07-05 12:04 | MORECARE ---
CASE MANAGEMENT DISCHARGE SUMMARY PATIENT: BRENDA AYERS UNIT: [id number] ADM DATE: 07/04/19 AGE: 78 : 42 SEX: F ROOM/BED: D.9424 AUTHOR: ARCHIE HERNANDEZ PHYSICIAN: REFERRING PHYSICIAN: SHEEBA ERIC MD DATE OF SERVICE: 07/05/19 Discharge Plan Patient Name: BRENDA AYERS Facility: [facility]:[place] : 1940 Planned Disposition: Home Anticipated Discharge Date: 07/05/19 Discharge Date: Expected LOS: 1 Initial Reviewer: [email or web address] Initial Review Date: 07/05/2019 Generated: 07/05/19 1:04 pm Coverage Notice Reviewer: [email or web address] Nany Juan Notice Issued Date-Time: 07/04/2019 19:30 Notice Type: Medicare Outpatient Observation Notice Notice Delivered To: Patient Relationship to Patient: Self Sales Expert Name: Brenda Ayers Delivery Method: HAND - Hand Delivered Anuja Days: Prior Verbal Notification: Recipient Understood Notice: Yes Recipient Signature: Yes Med Rec Note Co-signed by Attending: Coverage Notice Comment: [facility]INS delivered to and signed by patient. Original given to patient and one placed on chart. Patient Name: BRENDA AYERS Page [phone] at 1204 All edits/amendments must be made on the electronic document DICTATION DATE: 07/05/19 1204 PHOTONIC LABORATORY TECHNICIAN: ALIDA 07/05/19 1204 RPT#: [id number] DC DATE: STATUS: ADM IN [facility] [address] [place] [address] END OF REPORT
--- NOTE | 2019-07-05 12:18 | NUR ---
NO CHANGES FROM PREVIOUS ASSESEMENT. PT RESTING COMFORTABLY IN BED, DENIES ANY NEEDS AT THIS TIME. ABOUT 40 MORE MINUTES OF BEDREST. CALL LIGHT IN REACH, BEDSIDE RAILS X2, NAD NOTED,W ILL CONTINUE TO MONITOR.
--- NOTE | 2019-07-05 13:05 | NUR ---
PROVIDED VERBAL AND WRITTEN DISCHARGE TEACHINT TO PT, WHO VERBALIZED UNDERSTANDING REGARDING TEACHING. D/C RT FA IV WITH CATHETER TIP INTACT. HEART MONITOR REMOVED AND TAKEN TO LIQUEFACTION AND REGASIFICATION HELPER. PT WILL NOTIFY WHEN READY FOR WHEELCHAIR.
--- NOTE | 2019-07-05 13:43 | NUR ---
PT LEFT UNIT VIA WHEELCHAIR, WITH ALL BELONGINGS, ACCOMPANIED BY FAMILY, NAD NOTED.
--- NOTE | 2019-07-05 14:25 | NUR ---
SPOKE WITH PATIENT PATRICIA STARTING BACK TO [facility] IN 2 WEEKS, PATIENT AGREED WILL CALL HER CLOSER TO TIME TO GET HER SCHEDULED AND IN THE PROGRAM
== END 2019-07-05 13:44 | disposition home or self-care (01) ==
LOC: D.ER 17:47 → D.M2 19:10 → OBSVTIME 19:10 → D.M2 07-05 13:44
PROVIDERS: Family Medicine; ADMIT Internal Medicine Interventional Cardiology; ATTEND Internal Medicine Interventional Cardiology
DX: I25.110 Atherosclerotic heart disease of native coronary artery with unstable angina pectoris (principal); I10 Essential (primary) hypertension; E78.5 Hyperlipidemia, unspecified; E11.9 Type 2 diabetes mellitus without complications
CPT/HCPCS: 93458; 93571; 93572; C9600 ×3

== ENCOUNTER 2019-07-07 14:58 | Emergency (ER) | payer MEDICARE ==
[~2019-07-07] VITALS: Ht 160 cm; Wt 93.2 kg
[~2019-07-07 14:58] MED LIST changes: +MAG-OX 400 MG400 MG PO; +PEPCID40 MG PO; +PRALUENT P75 MG/1 ML SC; +TOPROL XL25 MG PO
[2019-07-07 15:10] VITALS: Ht 160 cm; Wt 93.2 kg
[2019-07-07 15:46] LABS: BASOPHILS 0.3 % (0-2); EOSINOPHILS 1.9 % (0-7); HEMATOCRIT 39.2 % (36.0-48.0); HEMOGLOBIN 13.7 g/dL (12-16); IMMATURE GRANULOCYTES 0.1 % (0-5); LYMPHOCYTES 22.8 % (15-50); MCH 30.6 pg (26.0-34.0); MCHC 34.9 g/dL (31.0-37.0); MCV 87.5 fL (80.0-100.0); MEAN PLATELET VOLUME 9.6 fL (7.4-10.4); MONOCYTES 6.6 % (2-11); NEUTROPHILS 68.3 % (40-80); PLATELET COUNT 189 10x3/uL (130-400); RBC 4.48 10x6/uL (4.00-5.40); RDW 12.9 % (11.5-14.5)
[2019-07-07 15:56] LABS: APPEARANCE CLEAR (CLEAR); BILIRUBIN NEGATIVE (NEGATIVE); COLOR YELLOW (YELLOW); GLUCOSE NEGATIVE (NEGATIVE); KETONE NEGATIVE (NEGATIVE); NITRITE POSITIVE (NEGATIVE); PROTEIN TRACE mg/dL (NEGATIVE); UROBILINOGEN NORMAL (NORMAL)
[2019-07-07 15:57] LABS: BACTERIA MANY /hpf (NEGATIVE); RED CELLS - URINE OCC /hpf (0-5); WHITE CELLS - URINE 0-5 /hpf (NEGATIVE)
[2019-07-07 16:13] LABS: ANION GAP 13.3 mmol/L (8-16); CALCIUM 9.6 mg/dL (8.5-10.1); CARBON DIOXIDE 27.1 mmol/L (21.0-32.0); CREATININE - SERUM 1.4 mg/dL (0.6-1.3); POTASSIUM - SERUM 4.4 mmol/L (3.5-5.1)
[2019-07-07 16:26] LABS: ALBUMIN 3.8 g/dL (3.4-5.0); BILIRUBIN - TOTAL 0.56 mg/dL (0.2-1.3)
[2019-07-07 17:43] VITALS: BP 156/76
== END 2019-07-07 17:50 | disposition home or self-care (01) ==
LOC: D.ER 14:58
PROVIDERS: Family Medicine
DX: N39.0 Urinary tract infection, site not specified (principal); E11.9 Type 2 diabetes mellitus without complications; I10 Essential (primary) hypertension; K21.9 Gastro-esophageal reflux disease without esophagitis; E07.9 Disorder of thyroid, unspecified; Z79.4 Long term (current) use of insulin

== ENCOUNTER 2019-07-09 20:28 | Emergency (ER) | payer MEDICARE ==
[~2019-07-09] VITALS: Ht 160 cm; Wt 93.0 kg
[2019-07-09 20:51] VITALS: Ht 160 cm; Wt 93.0 kg
[2019-07-09 21:30] LABS: APPEARANCE CLEAR (CLEAR); BILIRUBIN NEGATIVE (NEGATIVE); COLOR STRAW (YELLOW); GLUCOSE NEGATIVE (NEGATIVE); KETONE NEGATIVE (NEGATIVE); NITRITE NEGATIVE (NEGATIVE); PROTEIN 1+ mg/dL (NEGATIVE); UROBILINOGEN NORMAL (NORMAL)
[2019-07-09 21:32] LABS: BACTERIA FEW /hpf (NEGATIVE); EPITHELIAL CELLS 0-5 /hpf (0-5); RED CELLS - URINE RARE /hpf (0-5); WHITE CELLS - URINE 0-5 /hpf (NEGATIVE)
[2019-07-09] MEDS ORDERED: OMNICEF300 MG PO (21:53)
[2019-07-09] MEDS ORDERED: AZO STANDARD95 MG PO (21:54)
[2019-07-09 22:10] VITALS: BP 145/89
== END 2019-07-09 22:11 | disposition home or self-care (01) ==
LOC: D.ER 20:28
PROVIDERS: Emergency Medicine
DX: N30.00 Acute cystitis without hematuria (principal); E87.1 Hypo-osmolality and hyponatremia; E11.9 Type 2 diabetes mellitus without complications; Z79.4 Long term (current) use of insulin; I10 Essential (primary) hypertension; Z95.5 Presence of coronary angioplasty implant and graft; K21.9 Gastro-esophageal reflux disease without esophagitis

== ENCOUNTER → 2019-12-18 17:29 | Outpatient (CLI) | payer MEDICARE ==
[2019-07-09 20:51] VITALS: BMI 36.3
[~2019-12-18 17:29] MED LIST changes: +AZO STANDARD95 MG PO; +OMNICEF300 MG PO
[2019-12-18 18:03] LABS: CHOL - HDL RATIO 2.9 ratio (2.3-4.1); LDL-HDL RATIO 1.6 ratio (1.5-3.5)
== END | disposition home or self-care (01) ==
LOC: D.LABREF 17:29
PROVIDERS: ATTEND Internal Medicine Cardiovascular Disease
DX: E78.5 Hyperlipidemia, unspecified (principal)